=== PATIENT | male | born 1985 | race Asian ===

== ENCOUNTER 2019-04-11 14:13 | Inpatient (IN) | payer MEDICAID ==
[~2019-04-11] VITALS: Ht 162.6 cm; Wt 47.0 kg
[~2019-04-11 14:13] MED LIST: HALO5TAB2 PO
[2019-04-11 18:35] VITALS: BP 102/68
[2019-04-11] MEDS ORDERED: HALOPERIDOL 5 MG TABLET PO PRN (18:45)
[2019-04-11] MEDS ORDERED: LORazepam 2 MG TABLET PO PRN (18:45)
[2019-04-11] MEDS ORDERED: ZOLPIDEM TARTRATE 10 MG TABLET PO PRN (18:45)
[2019-04-12] MEDS ORDERED: INFLUENZA VIRUS VACCINE QVS 2019-20 (3YR+)/PF 60 MCG/0.5 ML SYRINGE IM ONE (03:45)
[2019-04-12 07:06] LABS: BASOPHILS % (AUTO) 0.5 % (0.0-2.0); EOSINOPHILS % (AUTO) 4.6 % (1.0-6.0); HEMATOCRIT 39.4 % (41-53); HEMOGLOBIN 13.2 g/dL (13.5-17.5); LYMPHOCYTES # (AUTO) 3.4 K/uL (1.0-4.8); LYMPHOCYTES % (AUTO) 40.3 % (22.0-44.0); MEAN CORPUSCULAR HEMOGLOBIN 29.1 pg (26.0-34.0); MEAN CORPUSCULAR HGB CONC 33.5 G/dL (31.0-37.0); MEAN CORPUSCULAR VOLUME 87 fL (80-100); MONOCYTES # (AUTO) 0.6 K/uL (0.1-1.0); MONOCYTES % (AUTO) 6.8 % (2.0-9.0); NEUTROPHILS % (AUTO) 47.8 % (40.0-70.0); PLATELET COUNT (AUTO) 276 K/uL (150-450); RED BLOOD CELL COUNT(AUTO) 4.54 MIL/uL (4.50-5.90); RED CELL DISTRIBUTION WIDTH 13.9 % (11.5-14.5)
[2019-04-12 07:30] LABS: HEMOGLOBIN A1C 5.4 % (4.5-6.2)
[2019-04-12 07:49] LABS: ALANINE AMINOTRANSFERASE 17 U/L (12-78); ALBUMIN 3.8 g/dL (3.4-5.0); ALKALINE PHOSPHATASE 79 U/L (46-116); ANION GAP 10 mmol/L (8-16); ASPARTATE AMINOTRANSFERASE 12 U/L (15-37); BILIRUBIN,TOTAL 0.4 mg/dL (0.1-1.0); CALCIUM, TOTAL 9.2 mg/dL (8.8-10.5); CARBON DIOXIDE 27 mmol/L (22-29); CHLORIDE 106 mmol/L (98-107); CHOL/HDL RATIO 3.9 (4.2-7.3); CHOLESTEROL 185 mg/dL (131-200); CREATININE 1.07 mg/dL (0.60-1.30); GLOMERULAR FILTR. RATE CALC > 60 mL/min (>60); GLUCOSE,RANDOM 100 mg/dL (70-110); HDL CHOLESTEROL 47 mg/dL (40-60); LDL CHOL (CALC.) 129 mg/dL (0-130); POTASSIUM 4.3 mmol/L (3.5-5.1); SODIUM SERUM 143 mmol/L (136-145); TRIGLYCERIDES 44 mg/dL (15-150); UREA NITROGEN, BLOOD 18 mg/dL (7-18)
[2019-04-12] MEDS: MULTIVITAMINS WITH MINERALS, THERAPEUTIC TABLET PO SCH (09:18)
[2019-04-12 09:20] VITALS: BP 96/63
[2019-04-12] MEDS ORDERED: LOPERAMIDE HCL 2 MG CAPSULE PO PRN (11:00)
[2019-04-12] MEDS ORDERED: CloNIDine HCL 0.1 MG TABLET PO PRN (11:00)
[2019-04-12] MEDS ORDERED: MAG HYDROX/AL HYDROX/SIMETH ES 30 ML SUSPENSION UDCUP PO PRN (11:00)
[2019-04-12] MEDS ORDERED: NICOTINE 14 MG/24 HOUR PATCH TD PRN (11:00)
[2019-04-12] MEDS ORDERED: DOCUSATE SODIUM 100 MG CAPSULE PO PRN (11:00)
[2019-04-12] MEDS ORDERED: MAGNESIUM HYDROXIDE SUSPENSION 30 ML UDCUP PO PRN (11:00)
[2019-04-12] MEDS ORDERED: ALBUTEROL SULFATE HFA 90 MCG/PUFF 8 GM INHALER IH PRN (11:00)
[2019-04-12] MEDS ORDERED: PETROLATUM,WHITE 28 GM JELLY TP PRN (11:00)
[2019-04-12] MEDS ORDERED: ONDANSETRON HCL 4 MG TABLET PO PRN (11:00)
[2019-04-12] MEDS ORDERED: ACETAMINOPHEN 325 MG TABLET PO PRN (11:00)
[2019-04-12] MEDS ORDERED: GuaiFENesin/D-METHORPHAN [SUGAR-FREE] 200-20MG/10 ML SYRUP UDCUP PO PRN (11:00)
[2019-04-12] MEDS ORDERED: IBUPROFEN 400 MG TABLET PO PRN (11:00)
[2019-04-12 16:30] VITALS: BP 97/61
[2019-04-12] MEDS: MIRTAZAPINE 15 MG TABLET PO SCH (20:31)
[2019-04-13 07:45] LABS: MAGNESIUM 1.9 mg/dL (1.80-2.40); PHOSPHORUS 3.7 mg/dL (2.5-4.9)
[2019-04-13] MEDS: ARIPiprazole 10 MG TABLET PO SCH (08:50)
[2019-04-13] MEDS: MULTIVITAMINS WITH MINERALS, THERAPEUTIC TABLET PO SCH (08:51)
[2019-04-13 12:51] VITALS: BP 100/60
[2019-04-13 16:05] VITALS: BP 116/53
[2019-04-13] MEDS: MIRTAZAPINE 15 MG TABLET PO SCH (20:06)
[2019-04-14] MEDS: MULTIVITAMINS WITH MINERALS, THERAPEUTIC TABLET PO SCH (08:14)
[2019-04-14] MEDS: ARIPiprazole 10 MG TABLET PO SCH (08:14)
[2019-04-14 08:41] VITALS: BP 110/74
[2019-04-14 16:47] VITALS: BP 103/57
[2019-04-14] MEDS: MIRTAZAPINE 15 MG TABLET PO SCH (20:05)
[2019-04-15 08:10] VITALS: BP 105/77
[2019-04-15] MEDS: ARIPiprazole 10 MG TABLET PO SCH (08:17)
[2019-04-15] MEDS: MULTIVITAMINS WITH MINERALS, THERAPEUTIC TABLET PO SCH (08:17)
[2019-04-15 16:25] VITALS: BP 95/66
[2019-04-15] MEDS: MIRTAZAPINE 15 MG TABLET PO SCH (20:06)
[2019-04-16] MEDS: MULTIVITAMINS WITH MINERALS, THERAPEUTIC TABLET PO SCH (07:50)
[2019-04-16] MEDS: ARIPiprazole 10 MG TABLET PO SCH (07:50)
[2019-04-16 08:13] VITALS: BP 114/77
[2019-04-16] MEDS ORDERED: ARIP10TA8 PO (12:30)
[2019-04-16] MEDS ORDERED: MIRT15 PO (12:30)
[2019-04-16] MEDS ORDERED: FERROUS SULFATE 325 MG EC TABLET PO SCH (17:30)
== END 2019-04-16 14:54 | disposition home or self-care (01) | DRG 885 ==
LOC: 3EC 17:45
PROVIDERS: ADMIT Psychiatry & Neurology Psychiatry; ATTEND Psychiatry & Neurology Psychiatry
DX: F25.0 Schizoaffective disorder, bipolar type (principal); D64.9 Anemia, unspecified; F41.9 Anxiety disorder, unspecified; I10 Essential (primary) hypertension; K21.9 Gastro-esophageal reflux disease without esophagitis; R45.87 Impulsiveness; Z23 Encounter for immunization
CPT/HCPCS: 83036; 83735; 84100; 87081; 90686